=== PATIENT | male | born 1955 | race Caucasian/White ===

== ENCOUNTER 2019-01-09 10:03 | Emergency (ER) | payer MEDICAID ==
[~2019-01-09] VITALS: Ht 172.7 cm; Wt 75.0 kg
[2019-01-09] MEDS ORDERED: SODIUM CHLORIDE 0.9% 1,000 ML IV ONE (10:22)
[2019-01-09 11:37] LABS: BASOPHILS % 0.7 % (0.0-2.0); EOSINOPHILS % 1.9 % (0.0-5.0); HEMATOCRIT. 39.8 % (42.0-52.0); HEMOGLOBIN. 13.2 g/dL (14.0-18.0); LYMPHOCYTES % 21.3 % (20.0-50.0); MEAN CORPUSCULAR HEMOGLOBIN 31.8 pg (28.0-32.0); MEAN CORPUSCULAR VOLUME 95.7 fL (80.0-94.0); MEAN PLATELET VOLUME 9.3 fl (7.4-10.4); MONOCYTES % 8.2 % (2.0-8.0); NEUTROPHILS % 67.9 % (40.0-76.0); PLATELET 238 x1000/uL (130-400); RED BLOOD CELL COUNT 4.15 mill/uL (4.7-6.1); RED CELL DISTRIBUTION WIDTH 13.3 % (11.6-14.6)
[2019-01-09 11:41] LABS: CHLORIDE 109 mEq/L (98-107)
[2019-01-09 11:55] LABS: INR 1.1; PARTIAL THROMBOPLASTIN TIME 21.5 sec (23.4-31.0); PROTHROMBIN TIME 10.7 sec (9.1-11.1)
[2019-01-09 14:43] LABS: CLARITY URINE CLEAR (CLEAR); COLOR URINE PALE YELLOW (YELLOW); KETONES URINE NEGATIVE (NEGATIVE); LEUKOCYTE ESTERASE URINE NEGATIVE (NEGATIVE); NITRITE URINE NEGATIVE (NEGATIVE); OCCULT BLOOD URINE NEGATIVE (NEGATIVE); PH URINE 5.5 (4.5-8.0); PROTEIN URINE NEGATIVE (NEGATIVE); SPECIFIC GRAVITY URINE 1.006 (1.005-1.030); UROBILINOGEN URINE 0.2 E.U./dL (0.2-1.0)
[2019-01-09 17:09] VITALS: BP 127/66
== END 2019-01-09 17:13 | disposition home or self-care (01) ==
LOC: ER 11:00 → CANBEDREQ 18:24
DX: R55 Syncope and collapse (principal); H53.8 Other visual disturbances; R42 Dizziness and giddiness
CPT/HCPCS: 36415; 70450; 71045; 80053; 81003; 82962; 83880; 84484; 85025; 85610; 85730; 93005; 96360; 96361; 99284; J7030

== ENCOUNTER 2022-04-21 16:55 | Emergency (ER) | payer MEDICARE, MEDICAID ==
[~2022-04-21] VITALS: Ht 157.5 cm; Wt 79.0 kg
[2022-04-21 17:20] VITALS: BP 131/88
[2022-04-21] MEDS ORDERED: METOCLOPRAMIDE HCL 5MG TABLET PO ONE (18:45)
[2022-04-21] MEDS ORDERED: ACETAMINOPHEN 325MG TABLET PO ONE (18:45)
[2022-04-21] MEDS ORDERED: ACET-2708 MT (19:01)
[2022-04-21] MEDS ORDERED: METO-293 MT (19:01)
== END 2022-04-21 19:30 | disposition home or self-care (01) ==
LOC: ER 16:55
DX: G44.209 Tension-type headache, unspecified, not intractable (principal); I10 Essential (primary) hypertension
CPT/HCPCS: 99283; J8597

== ENCOUNTER 2022-12-31 16:53 | Emergency (ER) | payer OTHER, MEDICAID ==
[~2022-12-31] VITALS: Ht 172.7 cm; Wt 95.0 kg
[~2022-12-31 16:53] MED LIST: ACET-2708 MT; METO-293 MT
[2022-12-31 18:03] LABS: BASOPHILS % 0.3 % (0.0-2.0); EOSINOPHILS % 2.9 % (0.0-5.0); HEMATOCRIT. 38.5 % (42.0-52.0); HEMOGLOBIN. 13.1 g/dL (14.0-18.0); LYMPHOCYTES % 23.7 % (20.0-50.0); MEAN CORPUSCULAR VOLUME 94.3 fL (80.0-94.0); MEAN PLATELET VOLUME 8.4 fl (7.4-10.4); MONOCYTES % 9.5 % (2.0-8.0); NEUTROPHILS % 63.6 % (40.0-76.0); PLATELET 231 x1000/uL (130-400); RED BLOOD CELL COUNT 4.08 mill/uL (4.7-6.1); RED CELL DISTRIBUTION WIDTH 12.8 % (11.6-14.6)
[2022-12-31 18:12] LABS: CHLORIDE 107 mEq/L (98-107)
[2022-12-31 22:59] VITALS: BP 130/86
== END 2022-12-31 23:01 | disposition home or self-care (01) ==
LOC: ER 16:53
DX: I10 Essential (primary) hypertension (principal)
CPT/HCPCS: 36415; 80048; 84484; 85025; 99284